=== PATIENT | female | born 1990 | race Caucasian/White ===

== ENCOUNTER 2018-08-24 19:24 | Inpatient (IN) | payer BC, OTHER ==
[~2018-08-24] VITALS: Ht 160 cm; Wt 56.7 kg
[2018-08-24 19:25] VITALS: BP 110/82
[2018-08-24] MEDS ORDERED: ADDERALL 5 MG TA5 M1 PO (19:49)
--- NOTE | 2018-08-24 19:49 | NUR ---
FRIENDS HAVE LEFT, DECLINED TO FILL OUT AFFIDAVIT UNTIL THEY TALK WITH HER. FRIENDS CALLED MOTHER. [phone]- MOTHER AKIRA ROBERTS
[2018-08-24 19:56] LABS: URINE BILIRUBIN NEGATIVE (Negative); URINE BLOOD NEGATIVE (Negative); URINE CLARITY CLEAR; URINE COLOR YELLOW; URINE GLUCOSE-RANDOM* NEGATIVE (Negative); URINE KETONES NEGATIVE (Negative); URINE LEUKOCYTES-REFLEX NEGATIVE (Negative); URINE NITRITE-REFLEX NEGATIVE (Negative); URINE PROTEIN (DIPSTICK) NEGATIVE (Negative); URINE SPECIFIC GRAVITY <= 1.005 (1.005-1.035); URINE UROBILINOGEN 0.2 E.U./dl (0.2-1.0)
[2018-08-24 20:04] LABS: AMP/METHAMP Negative (Negative); BARBITURATES Negative (Negative); BENZODIAZEPINES Negative (Negative); COCAINE Negative (Negative); METHADONE Negative (Negative); OPIATES Negative (Negative); PCP Negative (Negative)
[2018-08-24 20:14] LABS: ABSOLUTE NEUTROPHILS 4.5 thou/uL (1.4-8.2); BASOPHILS 1.1 % (0.0-2.0); HEMOGLOBIN 15.3 gm/dL (12.0-15.0); LYMPHOCYTES 29.8 % (24.0-44.0); MCH 34.4 pg (26.0-34.0); MCHC 34.8 g/dL (28.0-37.0); MCV 98.8 fL (80.0-100.0); MONOCYTES 6.2 % (1.0-8.0); PLATELET COUNT 244 thou/uL (150-400); POLYS 61.9 % (36.0-66.0); RBC 4.46 mil/uL (4.20-5.00); WBC 7.2 thou/uL (4.0-11.0)
[2018-08-24 20:23] LABS: ANION GAP 11 mmol/L (7-16); BUN 6 mg/dL (7-18); CALCIUM 9.4 mg/dL (8.5-10.1); CHLORIDE 107 mmol/L (98-107); CO2 27 mmol/L (21-32); CREATININE 0.7 mg/dL (0.6-1.0); GLUCOSE 94 mg/dL (74-106); POTASSIUM 3.6 mmol/L (3.5-5.1); SODIUM 145 mmol/L (136-145)
--- NOTE | 2018-08-24 20:30 | EKG ---
[place] [address] [facility] [email or web address] [address] ELECTROCARDIOGRAM REPORT Name: ALEJANDRANEETA [facility]: [id number] ������������������ Admission: 08/24/18 ������������������ Attend Phys: Discharge: ������������������ Date of : 89 Report #: [id number] ����������������������������������������������������������������� [id number] THIS REPORT FOR: //name// [facility] ED Test Date: 2018-08-24 Test Time: 19:54:22 Pat Name: NEETA ROBERTS Department: Room: Gender: F Court Operations Clerk: [place] : 1990 Requested By: Talon Benavides Order Number: [id number] MD: Teja Ramsay Measurements Intervals [place] Rate: 100 P: 73 NH: 132 QRS: 69 QRSD: 82 T: 33 QT: 336 QTc: 434 Interpretive Statements Sinus tachycardia right atrial enlargement Baseline wander Nonspecific ST-T wave changes No previous ECG available for comparison Electronically Signed On 08-24-2018 20:30:50 REVENUE INVESTIGATOR by Teja Ramsay [email or web address] ��������������������������������������������� <ELECTRONICALLY SIGNED> ���������������������������������������� By: Teja Ramsay MD ��������������������������������������������� 08/24/182029 53 53 Teja Ramsay MD /EPI
[2018-08-24 20:31] LABS: SALICYLATE < 2.8 mg/dL (2.8-20.0); SGOT 226 U/L (15-37); SGPT 91 U/L (30-65); TOTAL BILIRUBIN 0.2 mg/dL (<0.1-1.0); TOTAL PROTEIN 8.5 g/dL (6.4-8.2)
[2018-08-24 20:50] LABS: LARGE PLATELETS RARE
[2018-08-24 20:58] VITALS: BP 100/56
--- NOTE | 2018-08-24 21:02 | NUR ---
FAXED HAND OFF TOOL, FAXED
[2018-08-24 21:27] LABS: MAGNESIUM 2.1 mg/dL (1.8-2.4)
[2018-08-24 21:55] LABS: FOLIC ACID 7.6 ng/mL (8.6-58.9)
[2018-08-24 22:05] VITALS: BP 85/50
[2018-08-24 22:20] VITALS: BP 114/82
[2018-08-24] MEDS ORDERED: FLEXERIL PO (22:48)
--- NOTE | 2018-08-25 03:26 | NUR ---
Admission history and assessments completed. Care plan initiated. Patient initially very restless under influence of medication. 1:1 sitter at bedside. Family at bedside providing history. Currently calm after Lorazepam 1 mg, still tossed about in bed. IVfluids infusing. Vital signs and rhtym stable,
[2018-08-25 04:10] VITALS: BP 91/50
[2018-08-25 05:58] LABS: HEMATOCRIT 34.7 % (37.0-47.0); MCHC 34.2 g/dL (28.0-37.0); MCV 99.3 fL (80.0-100.0); RBC 3.5 mil/uL (4.20-5.00); WBC 7.6 thou/uL (4.0-11.0)
[2018-08-25 06:03] LABS: HEMOGLOBIN 11.9 gm/dL (12.0-15.0)
[2018-08-25 06:11] LABS: CALCIUM 8.3 mg/dL (8.5-10.1); CREATININE 0.7 mg/dL (0.6-1.0); POTASSIUM 3.9 mmol/L (3.5-5.1)
[2018-08-25 07:13] VITALS: BP 95/59
[2018-08-25 14:42] VITALS: BP 105/71
--- NOTE | 2018-08-25 18:47 | NUR ---
VSS-AFEBRILE. VERY DROWSY THROUGH SHIFT. FLAT AFFECT WHEN AWAKE. NO CURRENT REPORTS OF WANTING TO DO SELF HARM. OOB WITH SBA TO USE RESTROOM. RIGHT FA IV INFILTRATED, REMOVED. 1:[address] FAMILY AT BEDSIDE THROUGH DAY. POOR APPETITE.
[2018-08-25 19:12] VITALS: BP 125/86
--- NOTE | 2018-08-26 07:53 | NUR ---
PATIENT IS PROGRESSING IN HER CARE PLAN. VITAL SIGNS STABLE WITH PATIENT HAVING NO COMPLAINTS OF NAUSEA. PATIENT DID COMPLAIN OF MINIMAL PAIN IN LEFT LEG THAT DID NOT REQUIRE MEDICATION. PATIENT IS ORIENTED AND ABLE TO PARTICIPATE IN CARE. FLAT AFFECT NOTED. SITTER PROVIDED THROUGHOUT SHIFT WITH PATIENT HAVING NO STATEMENTS OF SI. UP MULTIPLE TIMES TO RESTROOM WITH ASSISTANCE INCIDENT FREE. CONTINUE PLAN OF CARE.
[2018-08-26 08:17] VITALS: BP 118/78
--- NOTE | 2018-08-26 10:54 | NUR ---
ASSUMED PATIENT CARE AT 0715. PATIENT EASILY AROUSABLE. VERY FLAT AFFECT. SEEMS UPSET. FAMILY AT BEDSIDE. HOPITALIST DISCUSSED POC WITH PATIENT AND FAMILY AT LENGTH. 1:1. WAITING ON INPATIENT PSYCH BED.
--- NOTE | 2018-08-26 13:20 | NUR ---
ASSESSMENT: CM REVIEWED CHART AND MET WITH PATIENT AT THE BEDSIDE. PTS MOTHER AND FATHER ARE ALSO PRESENT. PT IS ALERT AND ABLE TO ANSWER QUESTIONS APPROPRIATELY. PT REPORTS SHE LIVES IN A TOWNHOUSE WITH A ROOMATE. PT REPORTS SHE IS FULLY INDEPENDENT WITH ADLS AND AMBULATION. CM DISCUSSED ROLE. PT STATES SHE DOES NOT HAVE AN OUTPATIENT PSYCHIATRIST AND STATES SHE HAS NEVER BEEN TO AN INPATIENT PSYCH FACILITY. CM DISCUSSED ROLE AND HOW CM CAN PROVIDE PATIENT WITH ANY RESOURCES SHE IS INTERESTED IN. CM DISCUSSED INPATIENT PSYCH AND ASKED IF PATIENT WOULD BE AGREEABLE IF PSYCHIATRIST RECOMMENDS IT. PT STATING SHE IS UNSURE AND WOULD HAVE TO THINK ABOUT IT. CM DISCUSSED DIFFERENT INPATIENT PSYCH FACILITIES IF NEEDED AND SHE DOES NOT WANT REFERRALS SENT AT THIS TIME AND STATES SHE WANTS TO SEE WHAT THE PSYCHIATRIST SAYS. CM ALSO PROVIDED PATIENT WITH OUTPATIENT RESOURCES FOR FUTURE IF NEEDED INCLUDING [facility]. CM ALSO PROVIDED PATIENT WITH AA RESOURCES. CM WILL CONTINUE TO FOLLOW TO ASSIST NEEDED. WAITING ON PSYCHIATRIST TO ROUND ON PATIENT WITH RECOMMENDATIONS.
[2018-08-26 19:03] VITALS: BP 123/86
--- NOTE | 2018-08-27 01:49 | NUR ---
Received a call from [facility] who gave me information that pt. has been declined due to acuity. Also received a call from Britta of [facility] who will be accepting pt. and gave me info of admitting physician . RN to call [phone] for report.
[2018-08-27 06:35] VITALS: BP 119/81
--- NOTE | 2018-08-27 07:30 | NUR ---
Pt. frustrated and upset at beginning of shift. Mom and sister visited with pt. Her mood got better later on and slept well during the night. Sitter at bedside. Pt. has no suicidal ideation. Mild headache this am ,denies need for pain med. NUTRITION TECHNICIAN notified this am that pt. has been accepted at [facility]. Info faxed to [facility] and verified that it has been received. Pt. informed this am and requested she wants to see her mom and sister. Called mom Liberty to inform her that pt. is being transferred to [facility] and daughter would like to see her prior to transfer. Report called to [facility] and requested that we call them prior to transfer at [phone]. my Kay RN updated.
--- NOTE | 2018-08-27 10:22 | NUR ---
ASSUMED PATIENT CARE AT 0715. PATIENT HAS BEEN ACCEPTED AT [facility]. [facility] TO TRANSPORT. REPORT CALLED BY NIGHT RN. FAMILY AT BEDSIDE FOR TRANSPORT.
== END 2018-08-27 10:27 | DRG 917 ==
LOC: ER 19:24 → 3W 20:43 → EROBS 20:43 → 3W 22:06
PROVIDERS: Emergency Medicine; Nurse Practitioner Family; ADMIT Internal Medicine
DX: T48.1X2A Poisoning by skeletal muscle relaxants [neuromuscular blocking agents], intentional self-harm, initial encounter (principal); G92 Toxic encephalopathy; F32.9 Major depressive disorder, single episode, unspecified; F10.120 Alcohol abuse with intoxication, uncomplicated; F90.9 Attention-deficit hyperactivity disorder, unspecified type; F17.210 Nicotine dependence, cigarettes, uncomplicated; Y92.89 Other specified places as the place of occurrence of the external cause; Z79.899 Other long term (current) drug therapy; Z28.21 Immunization not carried out because of patient refusal
CPT/HCPCS: 10879